=== PATIENT | female | born 1950 | race Two or more races ===

== ENCOUNTER 2018-04-09 07:52 | Outpatient (CLI) | payer OTHER ==
[~2018-04-09 07:52] MED LIST: AMOX1TAB12 PO; INTESTINEX1 CAP PO; REGLAN PO; TENORMIN50 M1; ZANTAC300 MG PO
== END 2018-04-09 08:12 | disposition home or self-care (01) ==
LOC: NUCLEAR 07:52
DX: I25.10 Atherosclerotic heart disease of native coronary artery without angina pectoris (principal); I20.8 Other forms of angina pectoris; I70.213 Atherosclerosis of native arteries of extremities with intermittent claudication, bilateral legs
CPT/HCPCS: 78452; 93017; 93306; 93922; 93925; A9500

== ENCOUNTER 2018-04-10 10:57 | Outpatient (CLI) | payer OTHER | END 2018-04-10 12:00 | disposition home or self-care (01) | LOC: NUCLEAR 10:57 | DX: R60.0 Localized edema (principal) ==

== ENCOUNTER 2023-09-19 08:00 | Outpatient (CLI) | payer OTHER | END 2023-09-19 08:06 | disposition home or self-care (01) | LOC: SONOGRAMA 08:00 | PROVIDERS: ATTEND Legal Medicine | DX: I11.9 Hypertensive heart disease without heart failure (principal); E11.65 Type 2 diabetes mellitus with hyperglycemia ==